=== PATIENT | male | born 1945 | race Caucasian/White ===

== ENCOUNTER 2016-09-07 20:24 | Emergency (ER) | payer MEDICARE, BC ==
[2016-09-07 20:33] VITALS: BP 153/68
--- NOTE | 2016-09-07 21:02 | EDM.PDOC ---
ED HISTORY OF PRESENT ILLNESS - General Chief Complaint: Cardiovascular Problem Stated Complaint: LOW HEART RATE Time Seen by Provider: 09/07/16 20:30 Source of Information: Reports: Patient History Limitations: Reports: No limitations - History of Present Illness INITIAL COMMENTS - FREE TEXT/NARRATIVE: slow heart rate past week, passed out last kiarra while walking across house, prior stent, AVR 2 years ago, has hx of both slow and fast rates. Last adjustment of metoprolol was april, Denies chest pain, dizzy at times - Related Data Allergies/ADRs: Allergies Allergy/AdvReac Type Severity Reaction Status Date / Time meperidine HCl [From Demerol] Allergy Nausea and Verified 09/07/16 20:33 Vomiting Home Meds: Home Meds Aspirin [[place] Aspirin] 81 mg PO DAILY 04/20/14 [History] Clopidogrel Bisulfate [Clopidogrel] 75 mg PO DAILY 04/20/14 [History] Ezetimibe [Zetia] 10 mg PO DAILY 04/20/14 [History] Fish Oil/[place]-3 Fatty Acids [Fish Oil] 1 each PO DAILY 04/20/14 [History] Losartan [Cozaar] 100 mg PO DAILY 04/20/14 [History] atorvaSTATin Calcium [Atorvastatin Calcium] 40 mg PO DAILY 04/20/14 [History] Metoprolol Succinate [Toprol XL] 25 mg PO DAILY 01/12/16 [History] Hydrochlorothiazide 12.5 mg PO DAILY 09/07/16 [History] Past Medical History HEENT History: Reports: Impaired vision Cardiovascular History: Reports: High cholesterol, Hypertension - Past Surgical History HEENT Surgical History: Reports: Tonsillectomy Cardiovascular Surgical History: Reports: Coronary artery stent, Valve replacement Social & Family History - Family History Family Medical History: Noncontributory - Tobacco Use Smoking Status *Q: Never Smoker Second Hand Smoke Exposure: No - Recreational Drug Use Recreational Drug Use: No - Living Situation & Occupation Living situation: Reports: , with spouse Occupation: employed ED ROS GENERAL - Review of Systems Review Of Systems: See Below Constitutional: Reports: no symptoms HEENT: Reports: No symptoms Respiratory: Reports: no symptoms Cardiovascular: Reports: Dyspnea on exertion, Lightheadedness. Denies: Chest pain, Edema, Palpitations GI/Abdominal: Reports: No symptoms : Reports: no symptoms Musculoskeletal: Reports: no symptoms Skin: Reports: no symptoms Neurological: Reports: no symptoms ED EXAM, GENERAL - Physical Exam Exam: See Below Exam Limited By: No limitations General Appearance: alert, mild distress Eye Exam: bilateral eye: EOMI Ears: normal external exam Ear Exam: bilateral ear: TM normal Nose: normal inspection, normal mucosa Throat/Mouth: Normal inspection Head: atraumatic, normocephalic Neck: normal inspection. No: carotid bruit, lymphadenopathy (L), lymphadenopathy (R) Respiratory/Chest: no respiratory distress, lungs clear, normal breath sounds Cardiovascular: No: regular rate, rhythm, no murmur GI/Abdominal: normal bowel sounds Back Exam: normal inspection Extremities: normal inspection Neurological: alert, oriented, normal gait Course - Vital Signs Last Recorded V/S: Last Vital Signs Temp 97.4 F 09/07/16 20:28 Pulse 47 L 09/07/16 20:28 Resp 18 09/07/16 20:28 BP 153/68 H 09/07/16 20:28 Pulse Ox 99 09/07/16 20:28 - Orders/Labs/Meds Orders: Active Orders 24 hr Category Date Time Status EKG Documentation Completion [RC] STAT Care 09/07/16 20:54 Active Labs: Laboratory Tests 09/07/16 09/07/16 Range/Units 21:00 21:00 WBC 12.8 H (5.0-10.0) 10^3/uL RBC 5.12 (4.6-6.2) 10^6/uL Hgb 15.6 (14.0-18.0) g/dL Hct 46.5 (40.0-54.0) % MCV 90.8 (80-100) fL MCH 30.5 (27.0-34.0) pg MCHC 33.5 (33.0-35.0) g/dL Plt Count 234 (150-450) 10^3/uL Neut % (Auto) 61.9 (42.2-75.2) % Lymph % (Auto) 26.0 (20.5-50.1) % [place] % (Auto) 9.9 H (2-8) % Eos % (Auto) 2.0 (1.0-3.0) % Baso % (Auto) 0.2 (0.0-1.0) % Sodium 139 (135-145) mmol/L Potassium 4.4 (3.6-5.0) mmol/L Chloride 98 L (101-111) mmol/L Carbon Dioxide 30.0 (21.0-31.0) mmol/L Anion Gap 15.4 BUN 31 H (7-18) mg/dL Creatinine 1.5 H (0.6-1.3) mg/dL Est Cr Clr Drug Dosing 46.48 mL/min Estimated GFR (MDRD) 46 BUN/Creatinine Ratio 20.66 Glucose 88 (74-105) mg/dL Calcium 9.8 (8.4-10.2) mg/dl Magnesium 2.4 (1.8-2.5) mg/dL Total Bilirubin 1.0 (0.2-1.0) mg/dL AST 30 (10-42) IU/L ALT 17 (10-60) IU/L Alkaline Phosphatase 74 (42-121) IU/L Troponin I 0.03 H* (0.00-0.02) ng/ml B-Natriuretic Peptide 434 H (0-100) pg/ml Total Protein 8.6 H (6.7-8.2) g/dl Albumin 4.9 (3.2-5.5) g/dl Globulin 3.7 Albumin/Globulin Ratio 1.32 - Re-Assessments/Exams Free Text/Narrative Re-Assessment/Exam: 09/08/16 07:07 EKG complete heart block. No chest pain no dyspnea at rest. Dr. Figueroa accepting of patient in tx. Tx via [facility]. Stable. Departure - Departure Time of Disposition: 21:55 Disposition: DC/Tfer to Acute Hospital 02 Reason for Transfer *Q: Other Condition: fair Clinical Impression: Complete heart block by electrocardiogram, Bradycardia Referrals: PCP,Unobtain [Primary Care Provider] - Forms: ED Department Discharge - My Orders Last 24 Hours: My Active Orders 09/07/16 20:54 EKG Documentation Completion [RC] STAT - Assessment/Plan Last 24 Hours: My Active Orders 09/07/16 20:54 EKG Documentation Completion [RC] STAT
--- NOTE | 2016-10-21 13:21 | EKG ---
09/07/2016- MATEO KELLER - A 12-lead EKG shows complex AV block with probable right ventricular hypertrophy, nonspecific ST-T wave changes noted on lead V2 and V3 with peaked T- waves noted on lead V2 and V4. No significant ST elevation or ST depression noted on this 12-lead EKG. [facility] /[id number]
== END 2016-09-07 21:55 ==
LOC: DL.ED 20:24
DX: I44.2 Atrioventricular block, complete (principal); R00.1 Bradycardia, unspecified; E78.00 Pure hypercholesterolemia, unspecified; Z79.82 Long term (current) use of aspirin; Z79.899 Other long term (current) drug therapy; Z98.890 Other specified postprocedural states
CPT/HCPCS: 36415; 71010; 80053; 83735; 83880; 84484; 85025; 93005; 93010; 99285

== ENCOUNTER 2020-03-22 19:06 | Emergency (ER) | payer MEDICARE, BC ==
[2020-03-22 19:17] VITALS: BP 163/75; PULSE 63
[2020-03-22] MEDS ORDERED: Bacitracin Oint 1 GM U/D Packet TOP ONE (19:18)
[2020-03-22] MEDS ORDERED: Diphtheria,Pertussis(Acell),Tetanus Vaccine 0.5 ML SDV IM ONE (19:18)
--- NOTE | 2020-03-22 19:27 | EDM.PDOC ---
ED HPI GENERAL MEDICAL PROBLEM - General Chief Complaint: Laceration Stated Complaint: RIGHT HAND LACERACTION Time Seen by Provider: 03/22/20 19:15 Source of Information: Reports: Patient History Limitations: Reports: No Limitations - History of Present Illness INITIAL COMMENTS - FREE TEXT/NARRATIVE: pinched base of right index finger in table leaf [employer], immediate swelling, small puncture wound, denied bony injury, skin just piched, folded when removed from folding leaf. On plavix so some bleeding. Unsure tetnus status, at least 8 years. Family present states more than 10 years. - Related Data Allergies Allergy/AdvReac Type Severity Reaction Status Date / Time meperidine HCl [From Demerol] Allergy Nausea and Verified 03/22/20 19:14 Vomiting rosuvastatin [From Crestor] AdvReac Intermediate Other Verified 03/22/20 19:14 Home Meds: Home Meds Aspirin [[place] Aspirin EC] 81 mg PO DAILY 04/20/14 [History] Clopidogrel Bisulfate [Clopidogrel] 75 mg PO DAILY 04/20/14 [History] Ezetimibe [Zetia] 10 mg PO DAILY 04/20/14 [History] Fish Oil/[place]-3 Fatty Acids [Fish Oil] 1 each PO DAILY 04/20/14 [History] atorvaSTATin Calcium [Atorvastatin Calcium] 40 mg PO DAILY 04/20/14 [History] Metoprolol Succinate [Toprol XL] 25 mg PO DAILY 01/12/16 [History] Calcium Carbonate/Vitamin D3 [Calcium 600-Vit D3 800 [place]] 1 each PO DAILY 06/15/18 [History] Past Medical History HEENT History: Reports: Impaired Vision Other HEENT History: WEARS GLASSES Cardiovascular History: Reports: High Cholesterol, Hypertension, Pacemaker, Prior Cardiac Arrest, PTCA, Stents Other Cardiovascular History: Pacemaker 09/08/16,Cardiac Arrest kiarra 09/08/16,PTCA 09/09. STENTS X2. AORTIC VALVE REPLACEMENT Respiratory History: Reports: Bronchitis, Recurrent Gastrointestinal History: Reports: Colon Polyp, Diverticulosis, GERD, Hiatal Hernia Genitourinary History: Reports: None Musculoskeletal History: Reports: None Neurological History: Reports: Concussion Psychiatric History: Reports: None Endocrine/Metabolic History: Reports: None Hematologic History: Reports: B12 Deficiency Immunologic History: Reports: None Oncologic (Cancer) History: Reports: None Dermatologic History: Reports: None - Infectious Disease History Infectious Disease History: Reports: Scarlet Fever - Past Surgical History HEENT Surgical History: Reports: Tonsillectomy Cardiovascular Surgical History: Reports: Coronary Artery Stent, Percutaneous Transluminal Angioplasty, Valve Replacement, Other (See Below) Other Cardiovascular Surgeries/Procedures: ECHOCARDIOGRAM ON 05/25/18 GI Surgical History: Reports: Colonoscopy, EGD Male Surgical History: Reports: Vasectomy Neurological Surgical History: Reports: None Musculoskeletal Surgical History: Reports: None Social & Family History - Family History Family Medical History: Noncontributory - Tobacco Use Smoking Status *Q: Never Smoker Second Hand Smoke Exposure: No - Caffeine Use Caffeine Use: Reports: Coffee Caffeine Use Comment: 2 DAILY - Recreational Drug Use Recreational Drug Use: No - Living Situation & Occupation Living situation: Reports: , with Spouse Occupation: Employed ED ROS GENERAL - Review of Systems Review Of Systems: Comprehensive ROS is negative, except as noted in HPI. ED EXAM, SKIN/RASH Exam: See Below Exam Limited By: No Limitations General Appearance: Alert, Mild Distress Ears: Normal External Exam Nose: Normal Inspection Throat/Mouth: Normal Inspection Head: Atraumatic, Normocephalic Neck: Full Range of Motion Respiratory/Chest: No Respiratory Distress, Lungs Clear, Normal Breath Sounds Extremities: Normal Range of Motion, Other (Swelling MIP right index finger vieira surface slight echymosis palmar surface, puncture wound 2mm no active bleeding) Course - Vital Signs Last Recorded V/S: Last Vital Signs Temp 98.1 F 03/22/20 19:14 Pulse 63 03/22/20 19:14 Resp 16 03/22/20 19:14 BP 163/75 H 03/22/20 19:14 Pulse Ox 100 03/22/20 19:14 - Orders/Labs/Meds Meds: Medications Discontinued Medications Generic Name Dose Route Start Last Admin Trade Name Freq PRN Reason Stop Dose Admin Bacitracin 1 dose 03/22/20 19:18 03/22/20 19:26 Bacitracin Oint 1 Gm TOP 03/22/20 19:19 1 dose ONETIME ONE Administration Diphtheria/Tetanus/Acell Pertussis 0.5 ml 03/22/20 19:18 03/22/20 19:26 Adacel IM 03/22/20 19:19 0.5 ml .ONCE ONE Administration Departure - Departure Time of Disposition: : Disposition: Home, Self-Care 01 Condition: Good Clinical Impression: Contusion, Puncture wound - injury - Discharge Information *PRESCRIPTION DRUG MONITORING PROGRAM REVIEWED*: No *COPY OF PRESCRIPTION DRUG MONITORING REPORT IN PATIENT MEGAN: No Instructions: Puncture Wound, [id number] Referrals: Gera Crook MD [Primary Care Provider] - Forms: ED Department Discharge Additional Instructions: elevate extremity ice to finger tonight 15 minutes every hour bandaide dressing with antibiotic ointment follow up increased swelling redness or drainage from wound tylenol 650mg every 4 hours as needed for discomfort Sepsis Event Note (ED) - Evaluation Sepsis Screening Result: No Definite Risk - Focused Exam Vital Signs: Vital Signs Temp Pulse Resp BP Pulse Ox 03/22/20 19:14 98.1 F 63 16 163/75 H 100
== END 2020-03-22 19:31 | disposition home or self-care (01) ==
LOC: DL.ED 19:06
DX: S61.230A Puncture wound without foreign body of right index finger without damage to nail, initial encounter (principal); E78.00 Pure hypercholesterolemia, unspecified; I10 Essential (primary) hypertension; Z95.5 Presence of coronary angioplasty implant and graft; Z88.5 Allergy status to narcotic agent; Z88.8 Allergy status to other drugs, medicaments and biological substances; Z79.82 Long term (current) use of aspirin; Z79.02 Long term (current) use of antithrombotics/antiplatelets; Z79.899 Other long term (current) drug therapy; Z23 Encounter for immunization; W22.8XXA Striking against or struck by other objects, initial encounter
CPT/HCPCS: 90471; 90715; 99282; 99283